=== PATIENT | female | born 1980 | race Caucasian/White ===

== ENCOUNTER 2016-11-28 12:30 | Emergency (ER) | payer SELFPAY ==
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
[2016-11-28] MEDS ORDERED: IBUPROFEN 800 MG TABLET PO ONE (13:28)
[2016-11-28] MEDS: IBUPROFEN 800 MG TABLET PO STA (13:31)
[2016-11-28 13:42] LABS: BASOPHILS % (AUTO) 0.3 %; EOSINOPHILS # (AUTO) 0.3 10^3/uL (0.0-0.7); HCT - HEMATOCRIT 33.8 % (37.0-47.0); HGB - HEMOGLOBIN 11.2 g/dL (12.0-16.0); LYMPHOCYTES # (AUTO) 2.3 10^3/uL (1.5-3.5); LYMPHOCYTES % (AUTO) 20.1 %; MEAN CORPUSCULAR HEMOGLOBIN 24.4 pg (27.0-31.0); MEAN CORPUSCULAR VOLUME 73.8 fL (81.0-99.0); MEAN PLATELET VOLUME 8.8 fL (7.9-10.8); MONOCYTES # (AUTO) 0.8 10^3/uL (0.0-1.0); MONOCYTES % (AUTO) 6.9 %; NEUTROPHILS # (AUTO) 7.9 10^3/uL (1.5-6.6); NEUTROPHILS % (AUTO) 69.7 %; NUCLEATED RED BLOOD CELLS AUTO 0.1 /100WBC; RED BLOOD COUNT 4.58 10^6/uL (4.20-5.40); RED CELL DISTRIBUTION WIDTH 16.2 % (12.0-15.0); UNCORRECTED WHITE BLOOD COUNT 11.4 x10^3/uL; WHITE BLOOD COUNT 11.4 x10^3/uL (4.8-10.8)
--- NOTE | 2016-11-28 13:54 | XRAY Preliminary Report ---
Exam: XR Chest 2 View PA/LAT IMPRESSION: Normal 2-view chest radiography. [facility] SITE ID: [id number]
[2016-11-28 13:57] LABS: ALBUMIN/GLOBULIN RATIO 1.2 (1.0-2.2); BILIRUBIN,TOTAL 0.5 mg/dL (0.2-1.0); CALCIUM 8.6 mg/dL (8.5-10.3); CREATININE 0.7 mg/dL (0.4-1.0); POTASSIUM 3.6 mmol/L (3.5-5.0)
--- NOTE | 2016-11-28 13:57 | XRAY Report ---
EXAM: CHEST RADIOGRAPHY EXAM DATE: 11/28/2016 01:10 PM. CLINICAL HISTORY: Chest pain. COMPARISON: Chest x-ray 02/08/2007. TECHNIQUE: 2 views. FINDINGS: Lungs/Pleura: No focal opacities evident. No pneumothorax or pleural effusion. Normal volumes. Mediastinum: Heart and mediastinal contours are unremarkable. Other: None. IMPRESSION: Normal 2-view chest radiography. [facility] Referring Provider Line: [phone] SITE ID: [id number]
[2016-11-28] MEDS ORDERED: HYDROcod/ACETAM 5/325 MG TABLET ONE (14:52)
[2016-11-28] MEDS: HYDROcod/ACETAM 5/325 MG TABLET PO STA (14:54)
[2016-11-28 16:24] VITALS: BP 145/79
== END 2016-11-28 16:26 | disposition home or self-care (01) ==
LOC: ED 12:30
DX: R07.9 Chest pain, unspecified (principal); K21.9 Gastro-esophageal reflux disease without esophagitis; M54.9 Dorsalgia, unspecified; G89.29 Other chronic pain; Z87.442 Personal history of urinary calculi; Z82.49 Family history of ischemic heart disease and other diseases of the circulatory system; F17.200 Nicotine dependence, unspecified, uncomplicated
CPT/HCPCS: 36415; 71020; 80053; 83690; 84484; 84703; 85025; 85379; 93005; 93010; 99284

== ENCOUNTER 2017-01-30 21:56 | Emergency (ER) | payer MEDICAID ==
[2017-01-30] MEDS ORDERED: SODIUM CHLORIDE 0.9% 1,000 ML IV STA (22:18)
[2017-01-30] MEDS ORDERED: KETOROLAC 60 MG/2 ML VIAL IVP STA (22:39)
[2017-01-30] MEDS ORDERED: HYDROmorphone 1 MG/ML SYRINGE IVP STA (22:39)
[2017-01-30] MEDS ORDERED: diphenhydrAMINE 25 MG CAPSULE PO STA (22:40)
[2017-01-30] MEDS ORDERED: HYDROmorphone 1 MG/ML SYRINGE ONE ×2 (22:43→22:50)
[2017-01-30] MEDS ORDERED: KETOROLAC 30 MG/ML VIAL ONE ×2 (22:43→22:50)
[2017-01-30] MEDS ORDERED: diphenhydrAMINE 25 MG CAPSULE PO ONE ×2 (22:44→22:50)
[2017-01-30] MEDS ORDERED: ONDANSETRON 4 MG/2 ML VIAL IVP STA (22:48)
[2017-01-30] MEDS ORDERED: ONDANSETRON 4 MG/2 ML VIAL ONE (22:51)
[2017-01-31] MEDS ORDERED: oxyCODONE/ACET 5/325 Prepack 4 PO STA (00:09)
[2017-01-31] MEDS ORDERED: ONDANSETRON ODT 4 MG TABLET TL STA (00:09)
[2017-01-31] MEDS ORDERED: oxyCODONE/ACET 5/325 Prepack 4 PO ONE (00:13)
[2017-01-31] MEDS ORDERED: ONDANSETRON ODT 4 MG TABLET ONE (00:13)
[2017-01-31] MEDS ORDERED: ONDANSETRON ODT 4 MG Prepack 2 TL STA (00:25)
[2017-01-31] MEDS ORDERED: ONDANSETRON ODT 4 MG Prepack 2 TL ONE (00:29)
== END 2017-01-31 00:35 | disposition home or self-care (01) ==
DX: N20.2 Calculus of kidney with calculus of ureter (principal); K21.9 Gastro-esophageal reflux disease without esophagitis; F17.200 Nicotine dependence, unspecified, uncomplicated
CPT/HCPCS: 36415; 74176; 80053; 81001; 81025; 83690; 85025; 96374; 96375; 99283; 99284; A9270; J1170; Q0162

== ENCOUNTER 2018-07-26 20:20 | Outpatient (CLI) | payer OTHER | END 2018-07-26 20:21 | disposition critical access hospital (66) | LOC: EMS 20:20 | PROVIDERS: ATTEND Surgery | DX: M54.2 Cervicalgia (principal); M54.9 Dorsalgia, unspecified; R07.9 Chest pain, unspecified; V49.60XA Unspecified car occupant injured in collision with unspecified motor vehicles in traffic accident, initial encounter; Y92.413 State road as the place of occurrence of the external cause | CPT/HCPCS: A0425; A0429 ==

== ENCOUNTER 2018-07-26 20:34 | Emergency (ER) | payer SELFPAY ==
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
[2018-07-26 21:40] LABS: HCG,QUALITATIVE BLOOD NEGATIVE
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
[2018-07-26] MEDS ORDERED: KETOROLAC 60 MG/2 ML VIAL IM STA (22:43)
[2018-07-26 22:50] VITALS: BP 173/116
== END 2018-07-26 23:03 | disposition home or self-care (01) ==
LOC: EDUNIT# → ED 20:34
DX: Z04.1 Encounter for examination and observation following transport accident (principal); M25.512 Pain in left shoulder; M54.9 Dorsalgia, unspecified; F17.200 Nicotine dependence, unspecified, uncomplicated
CPT/HCPCS: 36415; 70450; 71045; 72125; 84484; 84703; 93005; 96372; 99283